=== PATIENT | female | born 1940 | race American Indian/Alaskan Native ===

== ENCOUNTER 2016-12-08 10:21 | Emergency (ER) | payer MEDICARE ==
[2016-12-08 10:22] VITALS: BMI 25.3
[2016-12-08] MEDS ORDERED: Sodium Chloride 0.9% 500 ML IV STA (11:00)
--- NOTE | 2016-12-08 11:03 | ED PDOC ---
Arrival/HPI - General Chief Complaint: Abdominal Pain Time Seen by Provider: 12/08/16 10:52 Historian: Patient, Family - History of Present Illness Narrative History of Present Illness (Text): 12/08/16 11:00 Farnaz Pink is a 76 year old female, with a past medical history of hypertension, asthma, CVA and colon CA, presents to the emergency department complaining of 2 day duration of intermittent abdominal pain associated with nausea and 3 episodes of vomiting. States she also had subjective fever. She is having normal bowel movements and had one today. Took Motrin yesterday for a mild headache, which has resolved. Denies dizziness, chest pain, shortness of breath, diarrhea, urinary symptoms, or any other complaints at this time. She also stats that she sees Dr. Bhatti who used to prescribe her Zantac and Omeprazole for he reflux. but they tapered her off of them. This feels like he reflux. Time/Duration: Other (yesterday ) Symptom Onset: Gradual Symptom Course: Intermittent Severity Level: Mild Activities at Onset: Light Context: Home Past Medical History - Provider Review Nursing Documentation Reviewed: Yes - Infectious Disease Hx of Infectious Diseases: None - Cardiac Hx Hypertension: Yes Hx Pacemaker: No - Pulmonary Hx Asthma: Yes - Neurological HX Cerebrovascular Accident: Yes (2008) Other/Comment: left sided weakness from stroke - Hematological/Oncological Hx Blood Transfusions: No Hx Blood Transfusion Reaction: No - Musculoskeletal/Rheumatological Hx Musculoskeletal Disorders: Yes - Gastrointestinal Other/Comment: h/o colon cancer had chemo and radiation 2006 - Psychiatric Hx Emotional Abuse: No Hx Physical Abuse: No Hx Substance Use: No - Surgical History Hx Hysterectomy: Yes - Anesthesia Hx Anesthesia: Yes Hx Anesthesia Reactions: No Hx Malignant Hyperthermia: No - Suicidal Assessment Feels Threatened In Home Enviroment: No Family/Social History - Physician Review Nursing Documentation Reviewed: Yes Family/Social History: No Known Family HX Smoking Status: Never Smoked Hx Alcohol Use: No Hx Substance Use: No Hx Substance Use Treatment: No Allergies/Home Meds Allergies/Adverse Reactions: Allergies No Known Allergies Allergy (Verified 01/31/15 14:25) Home Medications: Home Meds Medication Instructions Recorded Confirmed Albuterol Sulfate [Proair Hfa] 0.09 mg IH PRN PRN 02/29/12 08/27/16 Atorvastatin [Lipitor] 40 mg PO HS 02/29/12 12/08/16 Ramipril 10 mg PO HS 02/29/12 12/08/16 Ibuprofen 400 mg PO PRN PRN 10/14/14 12/08/16 Aspirin [Ecotrin] 81 mg PO DAILY 08/21/16 12/08/16 Labetalol [Trandate] 100 mg PO BID 08/21/16 12/08/16 Montelukast [Singulair] 10 mg PO DAILY 08/21/16 12/08/16 amLODIPine [Norvasc] 10 mg PO DAILY 08/21/16 12/08/16 Review of Systems - Physician Review All systems were reviewed & negative as marked: Yes - Review of Systems Constitutional: Fevers Respiratory: Cough. absent: SOB, Sputum Cardiovascular: Normal. absent: Chest Pain, Palpitations Gastrointestinal: Abdominal Pain, Nausea, Vomiting. absent: Diarrhea Genitourinary Female: Normal Neurological: Normal Psychiatric: Normal Physical Exam Vital Signs Reviewed: Yes Vital Signs Temp Pulse Resp BP Pulse Ox 12/08/16 14:09 98.3 F 78 16 152/90 H 100 12/08/16 10:34 98.9 F 77 19 177/84 H 98 Temperature: Afebrile Blood Pressure: Hypertensive Pulse: Regular Respiratory Rate: Normal Appearance: Positive for: Well-Appearing, Non-Toxic, Comfortable Pain Distress: None Mental Status: Positive for: Alert and Oriented X 3 - Systems Exam Head: Present: Atraumatic, Normocephalic Pupils: Present: PERRL Conjunctiva: Present: Normal Mouth: Present: Moist Mucous Membranes Respiratory/Chest: Present: Clear to Auscultation, Good Air Exchange. No: Respiratory Distress, Accessory Muscle Use Cardiovascular: Present: Regular Rate and Rhythm, Normal S1, S2. No: Murmurs Abdomen: Present: Tenderness, Normal Bowel Sounds. No: Distention, Peritoneal Signs, Rebound, Guarding Upper Extremity: Present: Normal Inspection. No: Cyanosis, Edema Lower Extremity: Present: Normal Inspection. No: Edema Neurological: Present: GCS=15, CN II-XII Intact, Speech Normal Skin: Present: Warm, Dry, Normal Color. No: Rashes Psychiatric: Present: Alert, Oriented x 3, Normal Insight, Normal Concentration Medical Decision Making ED Course and Treatment: 12/08/16 11:05 Impression: A 76 year old female who presents to the emergency department complaining of abdominal pain associated with nausea and vomiting since yesterday. Differential Diagnosis include but are not limited to: Abdominal pain: r/o gastritis vs. pancreatitis. less likely ACS. Plan: -- EKG -- Labs, cardiac enzymes -- Chest X-ray -- Pepcid -- Zofran -- IV fluids -- Urinalysis -- Reassess and disposition Progress Notes: 12/08/16 12:01 EKG interpreted by me: NSR @ 70 bpm. Normal Simpson. Normal interval. Chest X-ray interpreted by me: No acute findings. 12/08/16 14:40 On reevaluation, patient still does not have any pain. Her symptoms resolved prior to arrival. She has a low GLORIA score. She has follow up already set up with Dr. Bhatti and will take Zantac as prescribed. Her family is with her at bedside and we agree on the plan for follow up with PMD and Dr. Bhatti. Her eam is normal on reevaluation. No tenderness or distention. Tolerating PO fluids. - Lab Interpretations Lab Results: 12/08/16 11:46 12/08/16 11:46 Lab Results 12/08/16 11:46: Sodium 141, Potassium 3.9, Chloride 105, Carbon Dioxide 27, Anion Gap 13, BUN 12, Creatinine 0.9, Est GFR ( Amer) > 60, Est GFR (Non- Af Amer) > 60, Random Glucose 101, Calcium 9.9, Total Bilirubin 0.8, AST 27, ALT 25, Alkaline Phosphatase 66, Lactate Dehydrogenase 478, Total Creatine Kinase 121, Troponin I < 0.01, Total Protein 8.2, Albumin 4.3, Globulin 3.9, Albumin/Globulin Ratio 1.1, Amylase 111, Lipase 85 12/08/16 11:46: WBC 6.1, RBC 4.29, Hgb 13.2, Hct 37.5, MCV 87.4, MCH 30.8, MCHC 35.2, RDW 12.3, Plt Count 308, MPV 9.2, Gran % 56.4, Lymph % (Auto) 29.3, [place] % (Auto) 8.9 H, Eos % (Auto) 5.1 H, Baso % (Auto) 0.3, Gran # 3.44, Lymph # 1.8 , [place] # 0.5, Eos # 0.3, Baso # 0.02 I have reviewed the lab results: Yes - RAD Interpretation Radiology Orders: 12/08/16 11:00 CHEST PORTABLE [RAD] Stat Shoe Cutter: ED Physician - EKG Interpretation Interpreted by ED Physician: Yes Type: 12 lead EKG - Medication Orders Current Medication Orders: Discontinued Medications Famotidine (Pepcid) 20 mg IVP STAT STA Stop: 12/08/16 11:00 Last Admin: 12/08/16 11:46 Dose: 20 mg Sodium Chloride (Sodium Chloride 0.9%) 500 mls @ 999 mls/hr IV .Q31M STA Stop: 12/08/16 11:30 Last Admin: 12/08/16 11:46 Dose: 999 mls/hr Ondansetron HCl (Zofran Inj) 4 mg IVP STAT STA Stop: 12/08/16 11:00 Last Admin: 12/08/16 11:46 Dose: 4 mg - Scribe Statement The provider has reviewed the documentation as recorded by the Kelli Flores Provider Attestation: All medical record entries made by the Kelli were at my direction and personally dictated by me. I have reviewed the chart and agree that the record accurately reflects my personal performance of the history, physical exam, medical decision making, and the department course for this patient. I have also personally directed, reviewed, and agree with the discharge instructions and disposition. Disposition/Present on Arrival - Present on Arrival Any Indicators Present on Arrival: No History of DVT/PE: No History of Uncontrolled Diabetes: No Urinary Catheter: No History of Decub. Ulcer: No History Surgical Site Infection Following: None - Disposition Have Diagnosis and Disposition been Completed?: Yes Diagnosis: Abdominal pain Disposition: HOME/ ROUTINE Disposition Time: 14:10 Patient Plan: Discharge Patient Problems: Current Active Problems Problem Status Onset Abdominal pain Acute Condition: IMPROVED Discharge Instructions (ExitCare): Gastroesophageal Reflux Disease (ED), Abdominal Pain (ED) Additional Instructions: Ms Pink, thank you for letting us take care of you today. Your provider was Dr. Blanc. You were treated for Abdominal Pain. The emergency medical care you received today was directed at your acute symptoms. If you were prescribed any medication, please fill it and take as directed. It may take several days for your symptoms to resolve. Return to the Emergency Department if your symptoms worsen, do not improve, or if you have any other problems. Please contact your doctor or call one of the physicians/clinics you have been referred to that are listed on the Patient Visit Information form that is included in your discharge packet. Bring any paperwork you were given at discharge with you along with any medications you are taking to your follow up visit. Our treatment cannot replace ongoing medical care by a primary care provider (PCP) outside of the emergency department. Thank you for allowing the [facility] team to be part of your care today. If you had an X-Ray or CT scan: A Radiologist will review the ED reading if any change in treatment is needed we will contact you. If you had a blood, urine, or wound culture: It will take several days for the results, if any change in treatment is needed we will contact you. If you had an STI test: It will take 48 hours for the results. Please call after 1 week if you have not heard back. Prescriptions: Ondansetron ODT [Zofran ODT] 4 mg PO Q6 #14 odt Ranitidine HCl [Zantac] 150 mg PO BID PRN #30 tablet PRN Reason: Pain, Mild (1-3) Referrals: Angus Gongora MD [Family Provider] - Follow up with primary Dillon Bhatti MD [Medical Doctor] - Follow up with primary Forms: Air Visits Discharge ([place])
[2016-12-08 11:46] LABS: ADD MANUAL DIFF? NO
[2016-12-08 11:50] LABS: BASO # 0.02 K/mm3 (0.0-2.0); BASO % 0.3 % (0.0-3.0); EOS # 0.3 (0.0-0.7); EOS % 5.1 % (1.5-5.0); GRAN # 3.44 (1.4-6.5); GRAN % 56.4 % (50.0-68.0); HEMATOCRIT 37.5 % (36.0-48.0); LYMPH # 1.8 (1.2-3.4); LYMPH % 29.3 % (22.0-35.0); MEAN CELL VOLUME 87.4 fL (80.0-105.0); MEAN CORPUSCULAR HEMOGLOBIN 30.8 pg (25.0-35.0); MEAN CORPUSCULAR HGB CONC 35.2 g/dl (31.0-37.0); MEAN PLATELET VOLUME 9.2 fl (7.0-11.0); MONO # 0.5 (0.1-0.6); MONO % 8.9 % (1.0-6.0); PLATELET COUNT 308 10^3/uL (120.0-450.0); RED CELL DISTRIBUTION WIDTH 12.3 % (11.5-14.5); WHITE BLOOD COUNT 6.1 10^3/ul (4.5-11.0)
[2016-12-08 12:03] LABS: ALB/GLOB RATIO 1.1 (1.1-1.8); ALKALINE PHOSPHATASE 66 U/L (38-133); ALT/SGPT 25 U/L (7-56); AMYLASE 111 U/L (35-125); AST/SGOT 27 U/L (15-39); BILIRUBIN,TOTAL 0.8 mg/dL (0.2-1.3); BLOOD UREA NITROGEN 12 mg/dL (7-21); CALCIUM 9.9 mg/dL (8.4-10.5); CARBON DIOXIDE 27 mmol/L (21-33); CHLORIDE 105 mmol/L (98-107); GFR AFRICAN-AMERICAN > 60; GLUCOSE,RANDOM 101 mg/dL (70-110); LIPASE 85 U/L (23-300); POTASSIUM 3.9 mmol/L (3.6-5.0); SODIUM 141 mmol/L (132-148); TOTAL PROTEIN 8.2 g/dL (5.8-8.3)
[2016-12-08 12:32] LABS: TROPONIN I < 0.01 ng/mL
[2016-12-08 14:10] VITALS: BP 152/90; PULSE 78; RESP 16; TEMP 98.3; O2SAT 100
--- NOTE | 2016-12-08 16:03 | RAD ---
HISTORY: abd pain COMPARISON: GoNo prior. FINDINGS: LUNGS: No active pulmonary disease. Note made of a any elliptical shaped calcific like density overlying the left supraclavicular region which may represent small calcified lymph node PLEURA: No significant pleural effusion identified, no pneumothorax apparent. CARDIOVASCULAR: Heart is upper limits of normal in size. OSSEOUS STRUCTURES: No significant abnormalities. VISUALIZED UPPER ABDOMEN: Normal. OTHER FINDINGS: None. IMPRESSION: No acute cardiopulmonary disease.
--- NOTE | 2016-12-09 09:18 | CARD ---
APPROVED REPORT EKG Measurement Heart [id number] <Conclusion> Normal sinus rhythm Minimal voltage criteria for LVH, may be normal variant Borderline ECG
== END 2016-12-08 14:10 | disposition home or self-care (01) ==
LOC: ED 10:21
DX: R10.9 Unspecified abdominal pain (principal); Z86.73 Personal history of transient ischemic attack (TIA), and cerebral infarction without residual deficits; I10 Essential (primary) hypertension
CPT/HCPCS: 71010; 80053; 82150; 82550; 83615; 83690; 84484; 85025; 93005; 96374; 96375; 99283; J2405; J7040

== ENCOUNTER 2017-04-24 00:23 | Inpatient (IN) | payer MEDICARE, OTHER ==
[2017-04-24 00:24] VITALS: BMI 25.3
--- NOTE | 2017-04-24 00:47 | ED PDOC ---
Arrival/HPI - General Chief Complaint: Abdominal Pain Time Seen by Provider: 04/24/17 00:42 Historian: Patient - History of Present Illness Narrative History of Present Illness (Text): 04/24/17 00:47 Farnaz Pink is a 76 year old female, with a past medical history of hypertension, asthma, CVA, and colon CA, who presents to the complaining of intermittent upper abdominal pain since waking up yesterday morning. Patient denies any fever, chills, chest pain, nausea, vomiting, diarrhea, constipation, urinary symptoms, headache, dizziness, or any other complaints. Patient states her bowel movements have been normal. PMD: Dr. Heather Gongora GI: Dr. Bhatti Time/Duration: Other (yesterday morning) Symptom Onset: Gradual Symptom Course: Intermittent Activities at Onset: Light Context: Home Past Medical History - Provider Review Nursing Documentation Reviewed: Yes - Infectious Disease Hx of Infectious Diseases: None - Cardiac Hx Hypertension: Yes Hx Pacemaker: No - Pulmonary Hx Asthma: Yes - Neurological HX Cerebrovascular Accident: Yes (2008) Other/Comment: left sided weakness from stroke - Hematological/Oncological Hx Blood Transfusions: No Hx Blood Transfusion Reaction: No - Musculoskeletal/Rheumatological Hx Musculoskeletal Disorders: Yes - Gastrointestinal Other/Comment: h/o colon cancer had chemo and radiation 2005 - Psychiatric Hx Emotional Abuse: No Hx Physical Abuse: No Hx Substance Use: No - Surgical History Hx Hysterectomy: Yes - Anesthesia Hx Anesthesia: Yes Hx Anesthesia Reactions: No Hx Malignant Hyperthermia: No - Suicidal Assessment Feels Threatened In Home Enviroment: No Family/Social History - Physician Review Nursing Documentation Reviewed: Yes Family/Social History: Unknown Family HX Smoking Status: Never Smoked Hx Alcohol Use: No Hx Substance Use: No Hx Substance Use Treatment: No Allergies/Home Meds Allergies/Adverse Reactions: Allergies No Known Allergies Allergy (Verified 01/31/15 14:25) Home Medications: Home Meds Medication Instructions Recorded Confirmed Albuterol Sulfate [Proair Hfa] 0.09 mg IH PRN PRN 02/29/12 04/24/17 Atorvastatin [Lipitor] 40 mg PO HS 02/29/12 04/24/17 Ramipril 10 mg PO HS 02/29/12 04/24/17 Ibuprofen 400 mg PO PRN PRN 10/14/14 04/24/17 Aspirin [Ecotrin] 81 mg PO DAILY 08/21/16 04/24/17 Labetalol [Trandate] 100 mg PO BID 08/21/16 04/24/17 Montelukast [Singulair] 10 mg PO DAILY 08/21/16 04/24/17 amLODIPine [Norvasc] 10 mg PO DAILY 08/21/16 04/24/17 Review of Systems - Physician Review All systems were reviewed & negative as marked: Yes - Review of Systems Constitutional: Normal. absent: Fevers Eyes: Normal ENT: Normal Respiratory: Normal. absent: SOB, Cough Cardiovascular: Normal. absent: Chest Pain Gastrointestinal: Abdominal Pain. absent: Constipation, Diarrhea, Nausea, Vomiting, Hematochezia Genitourinary Female: Normal. absent: Dysuria, Frequency, Hematuria, Urine Output Changes Musculoskeletal: Normal. absent: Back Pain, Neck Pain Skin: Normal. absent: Rash Neurological: Normal. absent: Headache, Dizziness Endocrine: Normal Hemo/Lymphatic: Normal Psychiatric: Normal Physical Exam Vital Signs Reviewed: Yes Vital Signs Temp Pulse Resp BP Pulse Ox 04/24/17 04:42 81 16 155/82 H 95 04/24/17 00:34 98.5 F 78 18 164/72 H 98 Temperature: Afebrile Blood Pressure: Hypertensive Pulse: Regular Respiratory Rate: Normal Appearance: Positive for: Well-Appearing, Non-Toxic, Comfortable Pain Distress: None Mental Status: Positive for: Alert and Oriented X 3 - Systems Exam Head: Present: Atraumatic, Normocephalic Pupils: Present: PERRL Extroacular Muscles: Present: EOMI Conjunctiva: Present: Normal Mouth: Present: Moist Mucous Membranes Neck: Present: Normal Range of Motion Respiratory/Chest: Present: Clear to Auscultation, Good Air Exchange. No: Respiratory Distress, Accessory Muscle Use Cardiovascular: Present: Regular Rate and Rhythm, Normal S1, S2. No: Murmurs Abdomen: Present: Normal Bowel Sounds. No: Tenderness, Distention, Peritoneal Signs Upper Extremity: Present: Normal Inspection. No: Cyanosis, Edema Lower Extremity: Present: Normal Inspection. No: Edema Neurological: Present: GCS=15, CN II-XII Intact, Speech Normal Skin: Present: Warm, Dry, Normal Color. No: Rashes Psychiatric: Present: Alert, Oriented x 3, Normal Insight, Normal Concentration Medical Decision Making ED Course and Treatment: 04/24/17 00:47 Impression: 76 year old female complaining of intermittent upper abdominal pain since yesterday morning. Plan: -- CT Abdomen and Pelvis -- EKG -- Labs, cardiac enzymes, amylase, lipase, VBG, blood cultures -- Urinalysis, urine cultures -- IV fluids -- Zofran -- Reassess and disposition Prior Visits: Notes and results from previous visits were reviewed. On 12/08/2016, pt was seen in the Emergency department for abdominal pain, nausea, and vomiting. Pt was d/c home. Progress Notes: Reviewed EKG, NSR at [address]pm[address] LAD. Non-specific ST/T wave changes. 04/24/17 03:14 Reviewed radiology, CT Abdomen and Pelvis shows: 1. Enteritis, nonspecific. Consider infectious, inflammatory, ischemic etiologies. 2. Mild small bowel dilatation concerning for early small bowel obstruction. 3. Incidental/non-acute findings are described above. 04/24/17 03:[address] De Santiago, who is aware and agrees with plan. Accepts pt in to his service. Pt will be admitted to [facility] for intestinal obstruction. Pt agreeable with plan. - Lab Interpretations Microbiology Results: Microbiology Results 04/24/17 01:38 Blood-Venous Blood Culture - Preliminary NO GROWTH AFTER 4 DAYS 04/24/17 01:38 Blood-Venous Blood Culture - Preliminary NO GROWTH AFTER 4 DAYS 04/24/17 02:55 Urine,Clean Catch Urine Culture - Final No Growth (<1,000 CFU/ML) Lab Results: 04/24/17 01:38 04/24/17 01:38 Lab Results 04/24/17 02:55: Urine Color Yellow, Urine Appearance Clear, Urine pH 8.0, Ur Specific Hugo 1.010, Urine Protein Negative, Urine Glucose (UA) Negative, Urine Ketones Trace H, Urine Blood Negative, Urine Nitrate Negative, Urine Bilirubin Negative, Urine Urobilinogen 0.2, Ur Leukocyte Esterase Negative 04/24/17 01:38: pO2 69 H, VBG pH 7.44 H, VBG pCO2 47.0, VBG HCO3 31.9 H, VBG Total CO2 33.3 H, VBG O2 Sat (Calc) 94.5 H, VBG Base Excess 6.6 H, VBG Potassium 4.5, Sodium 140.0, Chloride 105.0, Glucose 111 H, Lactate 1.2, FiO2 21.0, Venous Blood Potassium 4.5 04/24/17 01:38: Sodium 144, Chloride 102, Potassium 3.4 L, Carbon Dioxide 31, Anion Gap 14, BUN 12, Creatinine 0.9, Est GFR ( Amer) > 60, Est GFR (Non- Af Amer) > 60, Random Glucose 108, Calcium 9.9, Total Bilirubin 0.5, AST 36, ALT 29, Alkaline Phosphatase 77, Lactate Dehydrogenase 557, Total Creatine Kinase 162, Troponin I < 0.01, Total Protein 7.7, Albumin 4.4, Globulin 3.3, Albumin/Globulin Ratio 1.3, Amylase 99, Lipase 95 04/24/17 01:38: PT 10.8, INR 1.00, APTT 24.7 04/24/17 01:38: WBC 8.1 D, RBC 4.30, Hgb 13.1, Hct 37.4, MCV 87.0, MCH 30.5, MCHC 35.0, RDW 12.5, Plt Count 313, MPV 9.5, Gran % 72.1 H, Lymph % (Auto) 19.9 L, [place] % (Auto) 6.0, Eos % (Auto) 1.6, Baso % (Auto) 0.4, Gran # 5.84, Lymph # 1.6, [place] # 0.5, Eos # 0.1, Baso # 0.03 I have reviewed the lab results: Yes - RAD Interpretation Narrative RAD Interpretations (Text): CT Abdomen and Pelvis shows: Limitations: Lack of intravenous contrast. Lower thorax: Moderate-sized hiatal hernia. ABDOMEN: Liver: Unremarkable. Gallbladder and bile ducts: No calcified stones. No ductal dilation. Pancreas: Unremarkable. No ductal dilation. Spleen: No splenomegaly. Adrenals: No mass. Kidneys and ureters: No renal calculi. No hydronephrosis. Stomach and bowel: Postsurgical changes of distal colon. Few mildly thickened loops of small bowel within lower abdomen. Mildly dilated loops of mid small bowel proximal to thickening. Mild stranding within associated small bowel mesentery. Appendix: No findings to suggest acute appendicitis. PELVIS: Bladder: Unremarkable. No stones. Reproductive: Hysterectomy. Subperitoneal space: Mild stranding/soft tissue density in presacral space, nonspecific. ABDOMEN and PELVIS: Intraperitoneal space: Small free fluid within abdomen. No free air. Bones/joints: Degenerative changes of spine. No acute fracture. Soft tissues: Laparotomy scar. Vasculature: Moderate atherosclerotic disease. No aneurysm. Lymph nodes: No pathologically enlarged lymph nodes. IMPRESSION: 1. Enteritis, nonspecific. Consider infectious, inflammatory, ischemic etiologies. 2. Mild small bowel dilatation concerning for early small bowel obstruction. 3. Incidental/non-acute findings are described above. Radiology Orders: 04/24/17 01:00 ABD & PELVIS W/O PO OR IV CONT [CT] Stat Warrant Server: Radiologist - EKG Interpretation Interpreted by ED Physician: Yes Type: 12 lead EKG - Medication Orders Current Medication Orders: Amlodipine Besylate (Norvasc) 10 mg PO DAILY [facility] Last Admin: 04/27/17 10:18 Dose: 10 mg Clonidine HCl (Catapres) 0.1 mg PO BID [facility] Last Admin: 04/27/17 18:07 Dose: 0.1 mg Ceftriaxone Sodium (Rocephin 1 Gram Ivpb) 1 gm in 100 mls @ 100 mls/hr IVPB DAILY [facility] PRN Reason: Protocol Last Admin: 04/27/17 10:19 Dose: 100 mls/hr Metronidazole (Flagyl) 500 mg in 100 mls @ 100 mls/hr IVPB Q8 [facility] PRN Reason: Protocol Last Admin: 04/27/17 22:30 Dose: 100 mls/hr Labetalol HCl (Trandate) 100 mg PO BID [facility] Last Admin: 04/27/17 18:05 Dose: 100 mg Morphine Sulfate (Morphine) 2 mg IVP Q4H PRN PRN Reason: Pain, moderate (4-7) Ondansetron HCl (Zofran Inj) 4 mg IVP Q6H PRN PRN Reason: Nausea/Vomiting Pantoprazole Sodium (Protonix Ec Tab) 40 mg PO 0600 [facility] Ramipril (Altace) 20 mg PO HS [facility] Last Admin: 04/27/17 22:30 Dose: 20 mg Discontinued Medications Barium Sulfate (Readi-Cat 2) Confirm Administered Dose 900 ml PO .STK-MED ONE Stop: 04/25/17 10:31 Clonidine HCl (Catapres) 0.1 mg PO STAT STA Stop: 04/25/17 18:16 Last Admin: 04/25/17 18:41 Dose: 0.1 mg Sodium Chloride (Sodium Chloride 0.9%) 1,000 mls @ 100 mls/hr IV .Q10H STA Stop: 04/24/17 10:59 Last Admin: 04/24/17 02:43 Dose: 100 mls/hr Sodium Chloride (Sodium Chloride 0.9%) 1,000 mls @ 100 mls/hr IV .Q10H STA Stop: 04/24/17 13:50 Last Admin: 04/24/17 04:04 Dose: Potassium Chloride 40 meq/ (Sodium Chloride) 1,020 mls @ 100 mls/hr IV .[id number] [facility] Last Admin: 04/25/17 06:55 Dose: 100 mls/hr Potassium Chloride (Potassium Chloride 20 Meq/100 Ml) 20 meq in 100 mls @ 50 mls/hr IVPB ONCE ONE Stop: 04/24/17 11:54 Last Admin: 04/24/17 10:25 Dose: Ceftriaxone Sodium (Rocephin 1 Gram Ivpb) 1 gm in 100 mls @ 200 mls/hr IVPB STAT STA PRN Reason: Protocol Stop: 04/25/17 17:50 Last Admin: 04/25/17 17:42 Dose: 200 mls/hr Potassium Chloride (Potassium Chloride 10 Meq/100 Ml) 10 meq in 100 mls @ 100 mls/hr IVPB Q2H [facility] Stop: 04/27/17 11:44 Last Admin: 04/27/17 10:18 Dose: 100 mls/hr Iohexol (Omnipaque 350 100 Ml) Confirm Administered Dose 350 mg .ROUTE .STK-MED ONE Stop: 04/25/17 13:16 Morphine Sulfate (Morphine) 2 mg IVP STAT STA Stop: 04/24/17 02:56 Last Admin: 04/24/17 03:12 Dose: 2 mg Ondansetron HCl (Zofran Inj) 4 mg IVP STAT STA Stop: 04/24/17 01:01 Last Admin: 04/24/17 02:43 Dose: 4 mg Pantoprazole Sodium (Protonix Inj) 40 mg IVP DAILY [facility] Last Admin: 04/27/17 10:19 Dose: 40 mg Potassium Chloride (K-Dur 20 Meq Er Tab) 40 meq PO ONCE ONE Stop: 04/25/17 08:16 Last Admin: 04/25/17 08:21 Dose: 40 meq Ramipril (Altace) 10 mg PO [facility] Last Admin: 04/26/17 22:18 Dose: Not Given Non-Admin Reason: BP Parameters Not Met Ramipril (Altace) 10 mg PO STAT STA Stop: 04/26/17 17:15 Last Admin: 04/26/17 17:58 Dose: 10 mg - Scribe Statement The provider has reviewed the documentation as recorded by the Kelli Woods Provider Scribe Attestation: All medical record entries made by the Kaelaibcaleb were at my direction and personally dictated by me. I have reviewed the chart and agree that the record accurately reflects my personal performance of the history, physical exam, medical decision making, and the department course for this patient. I have also personally directed, reviewed, and agree with the discharge instructions and disposition. Disposition/Present on Arrival - Present on Arrival Any Indicators Present on Arrival: No History of DVT/PE: No History of Uncontrolled Diabetes: No Urinary Catheter: No History of Decub. Ulcer: No History Surgical Site Infection Following: None - Disposition Have Diagnosis and Disposition been Completed?: Yes Diagnosis: Bowel obstruction Disposition: HOME/ ROUTINE Disposition Time: 03:40 Patient Problems: Current Active Problems Problem Status Onset Bowel obstruction Acute Condition: FAIR
[2017-04-24] MEDS ORDERED: Sodium Chloride 0.9% 1,000 ML IV STA ×2 (01:00→03:51)
[2017-04-24 01:52] LABS: BASO # 0.03 K/mm3 (0.0-2.0); BASO % 0.4 % (0.0-3.0); EOS # 0.1 (0.0-0.7); EOS % 1.6 % (1.5-5.0); GRAN # 5.84 (1.4-6.5); GRAN % 72.1 % (50.0-68.0); HEMATOCRIT 37.4 % (36.0-48.0); LYMPH # 1.6 (1.2-3.4); LYMPH % 19.9 % (22.0-35.0); MEAN CORPUSCULAR HEMOGLOBIN 30.5 pg (25.0-35.0); MEAN PLATELET VOLUME 9.5 fl (7.0-11.0); MONO # 0.5 (0.1-0.6); RED CELL DISTRIBUTION WIDTH 12.5 % (11.5-14.5); WHITE BLOOD COUNT 8.1 10^3/ul (4.5-11.0)
[2017-04-24 02:05] LABS: PARTIAL THROMBOPLASTIN TIME 24.7 Seconds (23.7-30.8)
[2017-04-24 02:11] LABS: ALB/GLOB RATIO 1.3 (1.1-1.8); ALKALINE PHOSPHATASE 77 U/L (38-126); ALT/SGPT 29 U/L (7-56); AMYLASE 99 U/L (35-125); AST/SGOT 36 U/L (14-36); BILIRUBIN,TOTAL 0.5 mg/dL (0.2-1.3); BLOOD UREA NITROGEN 12 mg/dL (7-21); CALCIUM 9.9 mg/dL (8.4-10.5); CARBON DIOXIDE 31 mmol/L (21-33); CHLORIDE 102 mmol/L (98-107); GFR AFRICAN-AMERICAN > 60; GLUCOSE,RANDOM 108 mg/dL (70-110); LIPASE 95 U/L (23-300); POTASSIUM 3.4 mmol/L (3.6-5.0); SODIUM 144 mmol/L (132-148); TOTAL PROTEIN 7.7 g/dL (5.8-8.3)
[2017-04-24 02:12] LABS: VENOUS BLOOD GAS BASE EXCESS 6.6 mmol/L (0.0-2.0); VENOUS BLOOD PH 7.44 (7.32-7.43)
[2017-04-24 02:22] LABS: TROPONIN I < 0.01 ng/mL
[2017-04-24] MEDS ORDERED: Morphine 2 mg/ml ISec IVP STA (02:55)
--- NOTE | 2017-04-24 03:12 | CT ---
EXAM: CT Abdomen and Pelvis Without Intravenous Contrast CLINICAL HISTORY: 76 years old, female; Pain; Abdominal pain; Generalized; Prior surgery; Surgery date: 6+ months; Surgery type: Hysterectomy; Additional info: Abd pain TECHNIQUE: Axial computed tomography images of the abdomen and pelvis without intravenous contrast. All CT scans at this facility use one or more dose reduction techniques, viz.: automated exposure control; ma/kV adjustment per patient size (including targeted exams where dose is matched to indication; i.e. head); or iterative reconstruction technique. Coronal and sagittal reformatted images were created and reviewed. COMPARISON: No relevant prior studies available. FINDINGS: Limitations: Lack of intravenous contrast. Lower thorax: Moderate-sized hiatal hernia. ABDOMEN: Liver: Unremarkable. Gallbladder and bile ducts: No calcified stones. No ductal dilation. Pancreas: Unremarkable. No ductal dilation. Spleen: No splenomegaly. Adrenals: No mass. Kidneys and ureters: No renal calculi. No hydronephrosis. Stomach and bowel: Postsurgical changes of distal colon. Few mildly thickened loops of small bowel within lower abdomen. Mildly dilated loops of mid small bowel proximal to thickening. Mild stranding within associated small bowel mesentery. Appendix: No findings to suggest acute appendicitis. PELVIS: Bladder: Unremarkable. No stones. Reproductive: Hysterectomy. Subperitoneal space: Mild stranding/soft tissue density in presacral space, nonspecific. ABDOMEN and PELVIS: Intraperitoneal space: Small free fluid within abdomen. No free air. Bones/joints: Degenerative changes of spine. No acute fracture. Soft tissues: Laparotomy scar. Vasculature: Moderate atherosclerotic disease. No aneurysm. Lymph nodes: No pathologically enlarged lymph nodes. IMPRESSION: 1. Enteritis, nonspecific. Consider infectious, inflammatory, ischemic etiologies. 2. Mild small bowel dilatation concerning for early small bowel obstruction. 3. Incidental/non-acute findings are described above.
[2017-04-24 03:15] LABS: URINE APPEARANCE CLEAR (CLEAR); URINE BILIRUBIN NEGATIVE (NEGATIVE); URINE BLOOD NEGATIVE (NEGATIVE); URINE COLOR YELLOW (YELLOW); URINE GLUCOSE (UA) NEGATIVE (NEGATIVE); URINE KETONE TRACE mg/dL (NEGATIVE); URINE LEUKOCYTE ESTERASE NEGATIVE Leu/uL (NEGATIVE); URINE PROTEIN NEGATIVE mg/dL (<30 mg/dL); URINE UROBILINOGEN 0.2 E.U./dL (<1 E.U./dL)
[2017-04-24] MEDS ORDERED: Morphine 2 mg/ml ISec IVP PRN (03:52)
--- NOTE | 2017-04-24 09:32 | CP.PCM.CON ---
History of Present Illness - History of Present Illness History of Present Illness: General Surgery Consult note: Dr. Delcid 76F w/ PMHx of HTN, CVA, colorectal cancer s/p resection (2005), presented to the ED with complaints of mid abdominal pain. Patient reports pain began yesterday afternoon. She states pain waxes and wanes and rates the pain as a 5/ 10. She denies radiation. Patient reports having two bouts of non-bloody emesis. Last bowel movement was two days ago. As per patient the last time she passed flatus was a day ago. Currently reports improvement of pain and rates it a 2/10. At time of examination denied fever/chills, n/v/d/c. PMHx: as stated above PSurgHx: colorectal resection, hysterectomy Allergies: NKDA Soc Hx: Denies smoking, EtOH use Review of Systems - Review of Systems Review of Systems: 12 pt ROS, unremarkable, except as stated in HPI Past Patient History - Infectious Disease Hx of Infectious Diseases: None - Past Social History Smoking Status: Never Smoked - CARDIAC Hx Hypercholesterolemia: Yes Hx Hypertension: Yes - PULMONARY Hx Asthma: Yes - NEUROLOGICAL HX Cerebrovascular Accident: Yes (2008) - HEENT Hx Cataracts: Yes - HEMATOLOGICAL/ONCOLOGICAL Hx Cancer: Yes (Colon 2005) - MUSCULOSKELETAL/RHEUMATOLOGICAL Hx Falls: No - GASTROINTESTINAL Other/Comment: h/o colon cancer had chemo and radiation 2005 - PSYCHIATRIC Hx Substance Use: No - SURGICAL HISTORY Hx Surgeries: Yes (Colon Resection) - ANESTHESIA Hx Anesthesia: Yes Hx Anesthesia Reactions: No Hx Malignant Hyperthermia: No Meds Allergies/Adverse Reactions: Allergies Allergy/AdvReac Type Severity Reaction Status Date / Time No Known Allergies Allergy Verified 01/31/15 14:25 - Medications Medications: Current Medications Amlodipine Besylate (Norvasc) 10 mg PO DAILY [facility] Potassium Chloride 40 meq/ (Sodium Chloride) 1,020 mls @ 100 mls/hr IV .[id number] [facility] Labetalol HCl (Trandate) 100 mg PO BID [facility] Morphine Sulfate (Morphine) 2 mg IVP Q4H PRN PRN Reason: Pain, moderate (4-7) Ondansetron HCl (Zofran Inj) 4 mg IVP Q6H PRN PRN Reason: Nausea/Vomiting Ramipril (Altace) 10 mg PO HS [facility] Physical Exam - Constitutional Appears: No Acute Distress - Head Exam Head Exam: NORMOCEPHALIC - Eye Exam Eye Exam: Normal appearance - ENT Exam ENT Exam: Mucous Membranes Moist - Respiratory Exam Respiratory Exam: NORMAL BREATHING PATTERN - Cardiovascular Exam Cardiovascular Exam: +S1, +S2 - GI/Abdominal Exam GI & Abdominal Exam: Soft. absent: Tenderness - Extremities Exam Extremities exam: Negative for: pedal edema - Neurological Exam Neurological exam: Alert, Oriented x3 - Psychiatric Exam Psychiatric exam: Normal Mood - Skin Skin Exam: Normal Color, Warm Results - Vital Signs Recent Vital Signs: Last Vital Signs Temp 98.1 F 04/24/17 08:41 Pulse 83 04/24/17 08:41 Resp 20 04/24/17 08:41 BP 162/76 H 04/24/17 08:41 Pulse Ox 97 04/24/17 08:41 - Labs Result Diagrams: 04/25/17 07:45 04/25/17 07:45 Assessment & Plan - Assessment and Plan (Free Text) Assessment: 76F w/ abdominal pain, nausea/vomiting, likely 2/2 early pSBO -Conservative management -NPO -IVF -Serial abdominal exams -Monitor bowel function -Medical management as per primary team -Further recs per Dr. Frahana Adams PGY-2
--- NOTE | 2017-04-24 10:52 | CARD ---
APPROVED REPORT EKG Measurement Heart [id number] VT 150P62 [id number] <Conclusion> Normal sinus rhythm Left axis deviation Minimal voltage criteria for LVH, may be normal variant
--- NOTE | 2017-04-24 14:18 | CP.PCM.CON ---
<Yomaira Ortega - Last Filed: 04/24/17 14:17> History of Present Illness - History of Present Illness History of Present Illness: Seen and examined at the bedside earlier today, the chart was reviewed. Request for consult is for intestinal obstruction. HPI: This is a 76-year-old female with a past medical history of colon cancer with colon resection,and chemoradiation in 2005, hypertension, and CVAcame to the emergency room with complaints of intermittent abdominal pain since yesterday morning. Currently her family is at bedside, the patient does report some nausea, vomitingyesterday, no hematemesis. Her abdominal pain she states is currently the same as when she came in, denies any increase in intensity. On admission she had a CAT scan of abdomen and pelvis with no contrast which is reporting nonspecific enteritis, and concerns for early small bowel obstruction. She denies any bowel movements since admission, last BM was 2 days ago,but does report passing gas. Denies change in bowel habits. Denies nausea or vomiting. No reports of any overt GI bleed. The patient did have endoscopy on August 2016 for iron deficiency anemia found to have narrowing in the GE junction and esophagitis,her biopsies for esophagus were negative for Bo's, her most recent colonoscopy was in 2014 she did have a history of colon polyps, but no polyps were found at this time, found to have hemorrhoids and diverticulosis. Past medical history: Asthma, CVA with left-sided weakness, hypertension, colon cancer with chemoradiation, colon polyps, esophagitis Surgical history: Colon resection Allergies: no known drug allergies Family history: Noncontributory Medications: Reviewed as per MAR Social history: Denies EtOH, smoking or substance abuse ROS: Systems reviewed with positive findings see HPI Past Patient History - Infectious Disease Hx of Infectious Diseases: None - Past Social History Smoking Status: Never Smoked - CARDIAC Hx Hypercholesterolemia: Yes Hx Hypertension: Yes - PULMONARY Hx Asthma: Yes - NEUROLOGICAL HX Cerebrovascular Accident: Yes (2008) - HEENT Hx Cataracts: Yes - HEMATOLOGICAL/ONCOLOGICAL Hx Cancer: Yes (Colon 2005) - MUSCULOSKELETAL/RHEUMATOLOGICAL Hx Falls: No - GASTROINTESTINAL Other/Comment: h/o colon cancer had chemo and radiation 2005 - PSYCHIATRIC Hx Substance Use: No - SURGICAL HISTORY Hx Surgeries: Yes (Colon Resection) - ANESTHESIA Hx Anesthesia: Yes Hx Anesthesia Reactions: No Hx Malignant Hyperthermia: No Meds Allergies/Adverse Reactions: Allergies Allergy/AdvReac Type Severity Reaction Status Date / Time No Known Allergies Allergy Verified 01/31/15 14:25 - Medications Medications: Current Medications Amlodipine Besylate (Norvasc) 10 mg PO DAILY [facility] Last Admin: 04/24/17 09:31 Dose: 10 mg Potassium Chloride 40 meq/ (Sodium Chloride) 1,020 mls @ 100 mls/hr IV .[id number] [facility] Last Admin: 04/24/17 09:31 Dose: 100 mls/hr Labetalol HCl (Trandate) 100 mg PO BID [facility] Last Admin: 04/24/17 09:31 Dose: 100 mg Morphine Sulfate (Morphine) 2 mg IVP Q4H PRN PRN Reason: Pain, moderate (4-7) Ondansetron HCl (Zofran Inj) 4 mg IVP Q6H PRN PRN Reason: Nausea/Vomiting Pantoprazole Sodium (Protonix Inj) 40 mg IVP DAILY [facility] Last Admin: 04/24/17 12:18 Dose: 40 mg Ramipril (Altace) 10 mg PO HS [facility] Physical Exam - Constitutional Appears: No Acute Distress - Head Exam Head Exam: NORMOCEPHALIC - Eye Exam Eye Exam: Normal appearance. absent: Scleral icterus - ENT Exam ENT Exam: Mucous Membranes Moist - Neck Exam Neck exam: Positive for: Normal Inspection - Respiratory Exam Respiratory Exam: Clear to Auscultation Bilateral, NORMAL BREATHING PATTERN. absent: Respiratory Distress - Cardiovascular Exam Cardiovascular Exam: +S1, +S2 - GI/Abdominal Exam GI & Abdominal Exam: Distended, Normal Bowel Sounds, Soft, Tenderness (right quadrant). absent: Guarding, Rebound - Extremities Exam Extremities exam: Positive for: pedal pulses present. Negative for: calf tenderness, pedal edema - Neurological Exam Neurological exam: Alert, Oriented x3 - Skin Skin Exam: Dry, Warm Results - Vital Signs Recent Vital Signs: Last Vital Signs Temp 98.1 F 04/24/17 08:41 Pulse 83 04/24/17 08:41 Resp 20 04/24/17 08:41 BP 162/76 H 04/24/17 09:31 Pulse Ox 97 04/24/17 08:41 - Labs Result Diagrams: 04/24/17 01:38 04/24/17 01:38 Assessment & Plan - Assessment and Plan (Free Text) Assessment: Assessment: Partial small bowel obstruction History of colon cancer, h/o colon resection CVA, left-sided weakness Hypertension Asthma History of colon polyps Plan: Nothing by mouth continue IV fluids for hydration GI prophylaxis DVT prophylaxis Pain management Surgical follow-up If no improvement, consider repeat CT scan with contrast, will follow closely Thank you for this consult and for allowing us to participate in your patient's care, further recommendations based upon clinical course. Seen and discussed with Dr. Bhatti. <Dillon Bhatti V - Last Filed: 04/24/17 22:25> Meds - Medications Medications: Current Medications Amlodipine Besylate (Norvasc) 10 mg PO DAILY [facility] Last Admin: 04/24/17 09:31 Dose: 10 mg Potassium Chloride 40 meq/ (Sodium Chloride) 1,020 mls @ 100 mls/hr IV .[id number] [facility] Last Admin: 04/24/17 21:13 Dose: 100 mls/hr Labetalol HCl (Trandate) 100 mg PO BID [facility] Last Admin: 04/24/17 17:18 Dose: 100 mg Morphine Sulfate (Morphine) 2 mg IVP Q4H PRN PRN Reason: Pain, moderate (4-7) Ondansetron HCl (Zofran Inj) 4 mg IVP Q6H PRN PRN Reason: Nausea/Vomiting Pantoprazole Sodium (Protonix Inj) 40 mg IVP DAILY [facility] Last Admin: 04/24/17 12:18 Dose: 40 mg Ramipril (Altace) 10 mg PO HS [facility] Last Admin: 04/24/17 21:09 Dose: 10 mg Results - Vital Signs Recent Vital Signs: Last Vital Signs Temp 98.3 F 04/24/17 16:00 Pulse 67 04/24/17 17:18 Resp 16 04/24/17 16:00 BP 166/68 H 04/24/17 17:18 Pulse Ox 96 04/24/17 16:00 - Labs Result Diagrams: 04/24/17 01:38 04/24/17 01:38 Attending/Attestation - Attestation I have personally seen and examined this patient.: Yes I have fully participated in the care of the patient.: Yes I have reviewed all pertinent clinical information: Yes Notes (Text): This is an addendum to GI progress report dictated by Yomaira Ortega APN.The patient was seen and examined earlier. Medical records, lab studies, imagings were reviewed. Last 24 hours events reviewed. Agreed with the above treatment plan as outlined in Yomaira Ortega NP's notes the with the addition of the following patient still complains of abdominal pain has been causing small amount of flatus CT scan reviewed distended small bowel loops seen. Recent endoscopy reports reviewed Patient has been started on clear liquid diet Would consider repeating the CT with po and IV contrast thank you very much for allowing us to participate in the care of the patient 04/24/17 22:22
--- NOTE | 2017-04-25 07:08 | CON ---
DATE: 04/24/2017 This is hospital consult on the medical floor. For Dr. Aparicio. CHIEF COMPLAINT: Abdominal pain. HISTORY OF PRESENT ILLNESS: The patient is a 76-year-old black female, former patient of Dr. Aparicio who treated her for colon cancer, status post resection 2005, admitted by the emergency room for abdominal pain of approximately 2 days duration. The patient now resting comfortably with partial small bowel obstruction noted on testing. She reports the pain is improved, but it is still significant with narcotic analgesics necessary to relieve her pain. ALLERGIES: NO KNOWN ALLERGIES. MEDICATIONS: At this time include Altace, morphine, Norvasc, Protonix, labetalol, Zofran. PAST MEDICAL HISTORY: As above, colorectal resection for cancer in 2005, hypertension, history of CVA, status post hysterectomy, GERD. FAMILY HISTORY AND SOCIAL HISTORY: The patient denies smoking, denies alcohol use; otherwise, noncontributory. REVIEW OF SYSTEMS: A 12-point review of systems is now with negative finding except as noted in the history of present illness. OBJECTIVE/PHYSICAL EXAMINATION VITAL SIGNS: Temperature 98.3, pulse 67, respirations 16, blood pressure 166/68, pulse ox 96%. HEENT: Unremarkable. NECK: Supple. HEART: Regular rate. LUNGS: Clear. ABDOMEN: Soft with minimal tenderness to gentle palpation. LABORATORY DATA: The patient also had testing done to include a CT scan of the abdomen and pelvis done on 04/24/2017, earlier today, which showed enteritis, nonspecific, considering infectious, inflammatory or ischemic etiologies, mild small bowel dilatation concerning for early small bowel obstruction and incidental non-acute findings. The patient's other testing included a CBC showing white blood cell count 8.1, hemoglobin 13.1, hematocrit 37.4, platelet count 313,000. Chem metabolic panel showing potassium of 3.4. INR 1.0. Urinalysis essentially negative. ASSESSMENT: The assessment for this patient is that of abdominal pain, small bowel obstruction, history of colorectal cancer status post resection, hypertension, electrolyte imbalance. PLAN: The plan for this patient is to continue present medical regimen with prognosis for this patient guarded. With further testing as indicated. We will also check CA and CA 19-9. Sudarshan Peters MD [facility] # [id number]
[2017-04-25 07:50] LABS: HEMATOCRIT 35.8 % (36.0-48.0); MEAN CELL VOLUME 89.3 fl (80.0-105.0); MEAN CORPUSCULAR HEMOGLOBIN 29.2 pg (25.0-35.0); MEAN CORPUSCULAR HGB CONC 32.7 g/dl (31.0-37.0); MEAN PLATELET VOLUME 9.1 fl (7.0-11.0); RED CELL DISTRIBUTION WIDTH 12.6 % (11.5-14.5); WHITE BLOOD COUNT 5.8 10^3/ul (4.5-11.0)
[2017-04-25] MEDS ORDERED: Potassium Chloride 20 mEq ER Tab PO ONE (08:15)
[2017-04-25 08:19] LABS: ALB/GLOB RATIO 1.2 (1.1-1.8); ALKALINE PHOSPHATASE 56 U/L (38-126); ALT/SGPT 26 U/L (7-56); AST/SGOT 27 U/L (14-36); BILIRUBIN,TOTAL 0.5 mg/dL (0.2-1.3); BLOOD UREA NITROGEN 6 mg/dL (7-21); CALCIUM 9.1 mg/dL (8.4-10.5); CARBON DIOXIDE 30 mmol/L (21-33); CHLORIDE 110 mmol/L (98-107); GFR AFRICAN-AMERICAN > 60; GLUCOSE,RANDOM 88 mg/dL (70-110); MAGNESIUM 1.8 mg/dL (1.7-2.2); POTASSIUM 4.7 mmol/L (3.6-5.0); SODIUM 146 mmol/L (132-148); TOTAL PROTEIN 6.5 g/dL (5.8-8.3)
--- NOTE | 2017-04-25 09:19 | CP.PCM.PN ---
Subjective - Date & Time of Evaluation Date of Evaluation: 04/25/17 Time of Evaluation: 07:00 - Subjective Subjective: Patient seen and examined this morning. No acute events over night. Patient reports having BM and passing flatus. Tolerating diet. Objective - Vital Signs/Intake and Output Vital Signs (last 24 hours): Temp Pulse Resp BP Pulse Ox 98 F 74 20 150/70 100 04/25/17 08:21 04/25/17 08:21 04/25/17 08:21 04/25/17 09:00 04/25/17 08:21 Intake and Output: 04/25/17 04/25/17 06:59 18:59 Intake Total 1979 Balance 1979 - Medications Medications: Current Medications Amlodipine Besylate (Norvasc) 10 mg PO DAILY [facility] Last Admin: 04/25/17 09:00 Dose: 10 mg Labetalol HCl (Trandate) 100 mg PO BID [facility] Last Admin: 04/25/17 09:00 Dose: 100 mg Morphine Sulfate (Morphine) 2 mg IVP Q4H PRN PRN Reason: Pain, moderate (4-7) Ondansetron HCl (Zofran Inj) 4 mg IVP Q6H PRN PRN Reason: Nausea/Vomiting Pantoprazole Sodium (Protonix Inj) 40 mg IVP DAILY [facility] Last Admin: 04/25/17 08:59 Dose: 40 mg Ramipril (Altace) 10 mg PO HS [facility] Last Admin: 04/24/17 21:09 Dose: 10 mg - Labs Labs: 04/25/17 07:45 04/25/17 07:45 PT 10.8 Seconds (9.9-11.8) 04/24/17 01:38 INR 1.00 (0.93-1.08) 04/24/17 01:38 APTT 24.7 Seconds (23.7-30.8) 04/24/17 01:38 - Constitutional Appears: Non-toxic - Head Exam Head Exam: NORMOCEPHALIC - Eye Exam Eye Exam: Normal appearance - ENT Exam ENT Exam: Mucous Membranes Moist - Respiratory Exam Respiratory Exam: NORMAL BREATHING PATTERN - Cardiovascular Exam Cardiovascular Exam: +S1, +S2 - GI/Abdominal Exam GI & Abdominal Exam: Soft. absent: Distended, Firm, Guarding, Rigid - Neurological Exam Neurological Exam: Alert, Awake, Oriented x3 - Skin Skin Exam: Dry, Warm Assessment and Plan - Assessment and Plan (Free Text) Assessment: 76F w/ pSBO, resolved -Regular diet -Encourage ambulation -No acute surgical intervention necessary at this present time -Further recs per Dr. Hang Adams PGY-2
--- NOTE | 2017-04-25 10:13 | HP ---
CHIEF COMPLAINT AND HISTORY OF PRESENT ILLNESS: This is a 76-year-old female who has come into the hospital because of acute abdominal pain that started yesterday. She said that the pain started suddenly as 5/10, so she came in for further evaluation. She was given pain medications, which she said that helped the pain; she did not think it was making the pain better or worse. She said she is not able to have bowel movements for the last 2 days. The patient does have a history of colon cancer with colon resection and radiation that was done in 2005. She said she was diagnosed by Dr. Edwards, but following with Dr. Aparicio. She has a history of hypertension. She states that she has no abdominal pain. She said she has no dysuria or frequency. She says that she has no nausea or vomiting. This morning, she says she has been able to pass gas. The patient has been followed by Dr. Bhatti and had an endoscopy done in August. REVIEW OF SYSTEMS: All other review of symptoms are within normal limits except as mentioned. ALLERGIES: NO KNOWN DRUG ALLERGIES. MEDICATIONS: Has been reviewed by the MAR. PAST MEDICAL HISTORY: 1. Asthma. 2. Esophagitis. 3. Colon cancer with radiation. 4. Hypertension. 5. Colon polyps. PAST SURGICAL HISTORY: Colon resection and hysterectomy. FAMILY HISTORY: Noncontributory. SOCIAL HISTORY: She does not smoke, drink, or use drugs. PHYSICAL EXAMINATION VITAL SIGNS: Temperature is 98.1, pulse of 83, blood pressure is 162/76, respirations 20, and O2 saturation is 97%. Height is 5 feet 7 inches, weight is 129 pounds, BMI is 20. LABORATORY DATA: White count of 8.1, hemoglobin 13.1, creatinine 0.9. Rest of the labs has been reviewed. CT of the abdomen and pelvis done. I reviewed the CAT scan myself. There is enteritis. There is a small bowel dilatation with early small-bowel obstruction. EKG done shows heart rate of 80, QTc 459, sinus rhythm. ASSESSMENT: 1. Small-bowel obstruction. 2. Constipation. 3. History of colon cancer. 4. Hypertension. PLAN: The patient is currently on ramipril for her blood pressure, this will be continued. She is going to be admitted to the hospital because of the abdominal pain. She is going to be placed on n.p.o. status. This morning when I saw the patient, I advanced her diet to a clear liquid diet. She is on IV fluids. She is getting labetalol for her hypertension, amlodipine and ramipril. The patient has been followed by Dr. Bhatti and Dr. Delcid. I spoke with Dr. Delcid regarding the case. The patient has also been seen by Dr. Aparicio who is her oncologist. We will repeat the patient's blood work tomorrow morning. Mike De Santiago MD
[2017-04-25] MEDS ORDERED: Barium Sulfate Susp 2.1% w/v, 2.0% w/w 450 mL Bottle PO ONE (10:30)
[2017-04-25 12:16] LABS: CA 19-9 8.1 U/mL (0-37)
--- NOTE | 2017-04-25 12:45 | RAD ---
HISTORY: SBO COMPARISON: No prior. FINDINGS: BOWEL: Normal. No obstruction. No free air. BONES: Normal. OTHER FINDINGS: None. IMPRESSION: No active disease.
[2017-04-25] MEDS ORDERED: Iohexol 350 MG/100 ML VIAL ONE (13:15)
--- NOTE | 2017-04-25 15:55 | CP.PCM.PN ---
<Yomaira Ortega - Last Filed: 04/25/17 15:56> Subjective - Date & Time of Evaluation Date of Evaluation: 04/25/17 Time of Evaluation: 10:20 - Subjective Subjective: seen and examined at the bedside this morning she just returned from abdominal x -ray, no obstruction. Patient had bowel movement that was formed 2 denies any melena or bright red blood per rectum. She also tolerating solids. No more nausea, no vomiting and abdominal pain has improved. Objective - Vital Signs/Intake and Output Vital Signs (last 24 hours): Temp Pulse Resp BP Pulse Ox 98 F 74 20 150/70 100 04/25/17 08:21 04/25/17 08:21 04/25/17 08:21 04/25/17 09:00 04/25/17 08:21 Intake and Output: 04/25/17 04/25/17 06:59 18:59 Intake Total 1979 Balance 1979 - Medications Medications: Current Medications Amlodipine Besylate (Norvasc) 10 mg PO DAILY [facility] Last Admin: 04/25/17 09:00 Dose: 10 mg Labetalol HCl (Trandate) 100 mg PO BID [facility] Last Admin: 04/25/17 09:00 Dose: 100 mg Morphine Sulfate (Morphine) 2 mg IVP Q4H PRN PRN Reason: Pain, moderate (4-7) Ondansetron HCl (Zofran Inj) 4 mg IVP Q6H PRN PRN Reason: Nausea/Vomiting Pantoprazole Sodium (Protonix Inj) 40 mg IVP DAILY [facility] Last Admin: 04/25/17 08:59 Dose: 40 mg Ramipril (Altace) 10 mg PO HS [facility] Last Admin: 04/24/17 21:09 Dose: 10 mg - Labs Labs: 04/25/17 07:45 04/25/17 07:45 PT 10.8 Seconds (9.9-11.8) 04/24/17 01:38 INR 1.00 (0.93-1.08) 04/24/17 01:38 APTT 24.7 Seconds (23.7-30.8) 04/24/17 01:38 - Constitutional Appears: No Acute Distress - Eye Exam Eye Exam: Normal appearance. absent: Scleral icterus - ENT Exam ENT Exam: Mucous Membranes Moist - Neck Exam Neck Exam: Normal Inspection - Respiratory Exam Respiratory Exam: Clear to Ausculation Bilateral, Respiratory Distress, NORMAL BREATHING PATTERN - Cardiovascular Exam Cardiovascular Exam: +S1, +S2 - GI/Abdominal Exam GI & Abdominal Exam: Soft, Normal Bowel Sounds. absent: Guarding, Tenderness, Organomegaly, Rebound - Extremities Exam Extremities Exam: Normal Capillary Refill. absent: Calf Tenderness (U6. No), Pedal Edema - Neurological Exam Neurological Exam: Alert, Awake, Oriented x3 - Skin Skin Exam: Dry, Warm Assessment and Plan - Assessment and Plan (Free Text) Assessment: Assessment: Resolved Partial small bowel obstruction History of colon cancer, h/o colon resection CVA, left-sided weakness Hypertension Asthma History of colon polyps Plan: continue diet as tolerated GI prophylaxis DVT prophylaxis Pain management Surgical follow-up CT scan abdomen and pelvis with IV and oral contrast requested, initial CAT scan on admission limited study, done without any contrast. Seen and discussed with Dr. Bhatti. <Dillon Bhatti V - Last Filed: 04/25/17 20:03> Objective - Vital Signs/Intake and Output Vital Signs (last 24 hours): Temp Pulse Resp BP Pulse Ox 98.9 F 64 20 166/75 H 98 04/25/17 16:00 04/25/17 18:41 04/25/17 16:00 04/25/17 18:41 04/25/17 16:00 - Medications Medications: Current Medications Amlodipine Besylate (Norvasc) 10 mg PO DAILY [facility] Last Admin: 04/25/17 09:00 Dose: 10 mg Ceftriaxone Sodium (Rocephin 1 Gram Ivpb) 1 gm in 100 mls @ 100 mls/hr IVPB DAILY [facility] PRN Reason: Protocol Metronidazole (Flagyl) 500 mg in 100 mls @ 100 mls/hr IVPB Q8 [facility] PRN Reason: Protocol Labetalol HCl (Trandate) 100 mg PO BID [facility] Last Admin: 04/25/17 17:42 Dose: 100 mg Morphine Sulfate (Morphine) 2 mg IVP Q4H PRN PRN Reason: Pain, moderate (4-7) Ondansetron HCl (Zofran Inj) 4 mg IVP Q6H PRN PRN Reason: Nausea/Vomiting Pantoprazole Sodium (Protonix Inj) 40 mg IVP DAILY [facility] Last Admin: 04/25/17 08:59 Dose: 40 mg Ramipril (Altace) 10 mg PO HS [facility] Last Admin: 04/24/17 21:09 Dose: 10 mg - Labs Labs: 04/25/17 07:45 04/25/17 07:45 PT 10.8 Seconds (9.9-11.8) 04/24/17 01:38 INR 1.00 (0.93-1.08) 04/24/17 01:38 APTT 24.7 Seconds (23.7-30.8) 04/24/17 01:38 Attending/Attestation - Attestation Notes (Text): 04/25/17 20:03 p
--- NOTE | 2017-04-25 16:01 | CT ---
PROCEDURE: CT Abdomen and Pelvis with contrast HISTORY: h/o colon cancer/sbo COMPARISON: 04/24/2017 CT TECHNIQUE: Contrast dose: 100 cc of Omni 350 Radiation dose: Total exam DLP = 321 mGy-cm. This CT exam was performed using one or more of the following dose reduction techniques: Automated exposure control, adjustment of the mA and/or kV according to patient size, and/or use of iterative reconstruction technique. FINDINGS: LOWER THORAX: Unremarkable. LIVER: Unremarkable. No gross lesion or ductal dilatation. GALLBLADDER AND BILE DUCTS: Unremarkable. PANCREAS: Unremarkable. No gross lesion or ductal dilatation. SPLEEN: Unremarkable. ADRENALS: Unremarkable. No mass. KIDNEYS AND URETERS: Unremarkable. No hydronephrosis. No solid mass. VASCULATURE: Unremarkable. No aortic aneurysm. BOWEL: There is mural thickening and mesenteric inflammation in the descending colon consistent with colitis. This could be due to diverticulitis. The small bowel dilatation seen on the earlier study has resolved. APPENDIX: Normal appendix. PERITONEUM: Unremarkable. No free fluid. No free air. LYMPH NODES: Unremarkable. No enlarged lymph nodes. BLADDER: Unremarkable. REPRODUCTIVE: Unremarkable. BONES: No acute fracture. OTHER FINDINGS: None. IMPRESSION: There is mural thickening and mesenteric inflammation in the descending colon consistent with colitis. This could be due to diverticulitis. The small bowel dilatation seen on the earlier study has resolved.
[2017-04-25] MEDS ORDERED: cefTRIAXone 1 gm 1 GM/100 ML BAG IVPB STA (17:21)
--- NOTE | 2017-04-25 18:37 | PN ---
This is the patient's hospital visit on the medical floor. For Dr. Aparicio. SUBJECTIVE: The patient is a 76-year-old female, former patient of Dr. Aparicio, for treatment of colorectal cancer in 2005, lost to follow-up, now admitted recently for partial bowel obstruction with the patient now reporting she is to have CT scan of her abdomen and pelvis with the patient reporting that her diet was advanced with her abdominal pain recurring afterwards. She is otherwise in no acute distress, reporting that her analgesics help her pain. OBJECTIVE: VITAL SIGNS: Temperature 98, pulse 74, respirations 20, blood pressure 150/70, pulse ox 100%. PHYSICAL EXAM: HEENT: Unremarkable. NECK: Supple. HEART: Regular rate. LUNGS: Clear. ABDOMEN: Soft, minimal tenderness to gentle palpation. EXTREMITIES: No edema. SKIN: Otherwise, warm, dry and clear. NEUROLOGIC: Awake, alert and oriented. LABORATORY DATA: Labs were done. White blood cell count 5.8, hemoglobin 11.7, hematocrit 35.8, platelet count of 272,000. Chem metabolic panel within normal limits except for chloride of 110, BUN of 6; otherwise, normal chem metabolic panel. CEA was 1.8 and CA 19-9 was 8.1. The patient had a flat plate of the abdomen done earlier today. It was read as no active disease. A CT scan of the abdomen and pelvis was also done later on this afternoon and it was read as mural thickening, mesenteric inflammation of descending colon consistent with colitis, could be due to diverticulitis, small bowel dilatation seen in early study has been resolved. ASSESSMENT: The assessment for this patient is that of resolving small bowel obstruction, colitis, history of colorectal cancer status post resection, hypertension, electrolyte imbalance, abdominal pain. PLAN: Plan for this patient after conversation with Dr. Aparicio is to continue present medical regimen with advancing the diet. No surgical intervention at this time with considerations to antibiotics as per Dr. Bhatti or Dr. De Santiago as indicated. Sudarshan Peters MD
[2017-04-25] MEDS: metroNIDAZOLE IV 500 mg/100 ml 500 MG/100 ML BAG IVPB SCH (22:31)
--- NOTE | 2017-04-26 01:22 | PN ---
DATE: 04/25/2017 SUBJECTIVE: The patient has no complaints of any chest pain. No shortness of breath or headaches. No dizziness. She says her abdominal pain is better. She is having bowel movements. PHYSICAL EXAMINATION: VITAL SIGNS: Temperature 98.9, pulse 64, blood pressure 166/75, and respirations 20. GENERAL: The patient is lying in bed, flat, comfortable. HEENT: No oral lesion. Anicteric sclerae. Moist mucosa. NECK: No JVD, adenopathy, or thyromegaly. CARDIOVASCULAR: S1 and S2, regular. No murmurs, rubs, or gallops. LUNGS: Clear to auscultation bilaterally. No wheeze, rales, or rhonchi. ABDOMEN: Bowel sounds are positive, soft, nontender and nondistended. EXTREMITIES: no cyanosis, clubbing or edema. LABORATORY DATA: White count of 5.8 and hemoglobin of 11.7. CT scan of the abdomen and pelvis done shows mural thickening and mesenteric inflammation of descending colon consistent with colitis, this could be due to diverticulitis, small bowel dilatation seen in early study has been resolved. ASSESSMENT: 1. Small bowel obstruction, resolved. 2. Descending colon colitis. 3. Constipation. 4. Hypertension. 5. History of colon cancer. PLAN: The patient is currently on ramipril for her hypertension. She is going to be on morphine for pain. She has neurovascular hypertension as well. She is going to continue with Norvasc. I did speak to Dr. Bhatti regarding the case. The patient is going to be seen by Dr. Delcid as well and Dr. Aparicio for the colon cancer. She is receiving labetalol for her hypertension as well. She is on Zofran as needed. She is on a liquid diet. Mike De Santiago MD
[2017-04-26] MEDS: metroNIDAZOLE IV 500 mg/100 ml 500 MG/100 ML BAG IVPB SCH ×3 (07:50→22:15)
--- NOTE | 2017-04-26 08:56 | CP.PCM.PN ---
Subjective - Date & Time of Evaluation Date of Evaluation: 04/26/17 Time of Evaluation: 08:55 - Subjective Subjective: General Surgery progress note for DR. Delcid PT S&E at bedside. LEATHA. Patient has no complaints at this time. Patient was told CT scan showed wall thickening at the descending colon by GI (possible diverticulitis/colitis). Patient is tolerating diet well. PT denies F/C, N/V. Patient admits to some tenderness to palpation of her abdomen. Patient admits to flatus and BM. Objective - Vital Signs/Intake and Output Vital Signs (last 24 hours): Temp Pulse Resp BP Pulse Ox 98.9 F 64 20 166/75 H 98 04/25/17 16:00 04/25/17 18:41 04/25/17 16:00 04/25/17 18:41 04/25/17 16:00 Intake and Output: 04/26/17 04/26/17 06:59 18:59 Intake Total 1080 Output Total 5 Balance 1075 - Medications Medications: Current Medications Amlodipine Besylate (Norvasc) 10 mg PO DAILY [facility] Last Admin: 04/25/17 09:00 Dose: 10 mg Ceftriaxone Sodium (Rocephin 1 Gram Ivpb) 1 gm in 100 mls @ 100 mls/hr IVPB DAILY [facility] PRN Reason: Protocol Metronidazole (Flagyl) 500 mg in 100 mls @ 100 mls/hr IVPB Q8 [facility] PRN Reason: Protocol Last Admin: 04/26/17 07:50 Dose: 100 mls/hr Labetalol HCl (Trandate) 100 mg PO BID [facility] Last Admin: 04/25/17 17:42 Dose: 100 mg Morphine Sulfate (Morphine) 2 mg IVP Q4H PRN PRN Reason: Pain, moderate (4-7) Ondansetron HCl (Zofran Inj) 4 mg IVP Q6H PRN PRN Reason: Nausea/Vomiting Pantoprazole Sodium (Protonix Inj) 40 mg IVP DAILY [facility] Last Admin: 04/25/17 08:59 Dose: 40 mg Ramipril (Altace) 10 mg PO HS [facility] Last Admin: 04/25/17 22:31 Dose: 10 mg - Labs Labs: 04/25/17 07:45 04/25/17 07:45 PT 10.8 Seconds (9.9-11.8) 04/24/17 01:38 INR 1.00 (0.93-1.08) 04/24/17 01:38 APTT 24.7 Seconds (23.7-30.8) 04/24/17 01:38 - Constitutional Appears: Non-toxic, No Acute Distress - Head Exam Head Exam: NORMAL INSPECTION - Eye Exam Eye Exam: EOMI, Normal appearance - ENT Exam ENT Exam: Mucous Membranes Moist - Neck Exam Neck Exam: Full ROM - Respiratory Exam Respiratory Exam: Clear to Ausculation Bilateral. absent: Accessory Muscle Use , Respiratory Distress - Cardiovascular Exam Cardiovascular Exam: REGULAR RHYTHM. absent: Bradycardia, Tachycardia - GI/Abdominal Exam GI & Abdominal Exam: Soft, Tenderness, Normal Bowel Sounds. absent: Firm, Guarding, Rigid, Rebound Additional comments: very mild tenderness to palpation in upper quadrants. no rebound, rigidity, guarding - Extremities Exam Extremities Exam: Full ROM, Normal Inspection. absent: Joint Swelling, Pedal Edema - Neurological Exam Neurological Exam: Alert, Awake, Oriented x3 - Psychiatric Exam Psychiatric exam: Normal Affect, Normal Mood - Skin Skin Exam: Dry, Intact, Normal Color, Warm Assessment and Plan - Assessment and Plan (Free Text) Assessment: 76F w/ pSBO, resolved Plan: Diet: Heart Healthy Diet Encourage ambulation No acute surgical intervention necessary at this present time Further recommendations per Dr. Hang Chance, PGY1
[2017-04-26] MEDS: cefTRIAXone 1 gm 1 GM/100 ML BAG IVPB SCH (09:23)
--- NOTE | 2017-04-26 21:52 | PN ---
DATE: 04/26/2017 This is [facility] visit on the medical floor. For Dr. Aparicio. SUBJECTIVE: The patient is a 76-year-old female, seen lying awake in bed, now resuming clear liquids as per Dr. Bhatti with antibiotics also, begun for her colitis/diverticulitis treatment with the patient reporting her pain has significantly improved and appears to be in no acute distress with family members at the bedside. Her abdominal pain worsened after her diet was advanced yesterday; however, her pain has now improved with the change of diet. OBJECTIVE/PHYSICAL EXAMINATION VITAL SIGNS: Temperature 98.5, pulse 76, respirations 18, blood pressure 202/75 to be repeated with a pulse ox of 95%. HEENT: Unremarkable. NECK: Supple. HEART: Regular rate. LUNGS: Clear. ABDOMEN: Soft. Minimal tenderness to gentle palpation. EXTREMITIES: No edema. SKIN: Warm and dry. NEUROLOGIC: Awake, alert, and oriented x3. LABORATORY DATA: The patient's labs were done yesterday and we will repeat it tomorrow in the morning. The patient did have a CT scan of the abdomen and pelvis done yesterday with the findings showing mural thickening, mesenteric inflammation of descending colon consistent with colitis, could be due to diverticulitis, small bowel dilatation has been resolved. ASSESSMENT: For this patient is that of colitis/diverticulitis, small bowel obstruction improved, history of cancer of the colon, status post resection, electrolyte imbalance, hypertension. PLAN: For this patient after conversation with Dr. Aparicio is to continue present medical regimen with antibiotics to continue as per Dr. Bhatti, with her labs to be checked in the morning, with her medications to be adjusted as per Dr. De Santiago, with clonidine given and Catapres begun by Dr. Tse covering for Dr. De Santiago. We will monitor clinically with labs. Sudarshan Peters MD
--- NOTE | 2017-04-27 00:36 | PN ---
SUBJECTIVE: The patient is 76 years old, seen and examined, lying in bed, seemed to be comfortable, tolerating clear liquid. No nausea, vomiting, or diarrhea. PHYSICAL EXAMINATION VITAL SIGNS: She is afebrile, pulse 76, respiration 18, and blood pressure 156/76. LUNGS: Bilateral fair airflow. No rhonchi or crackles. HEART: S1 and S2 audible. ABDOMEN: Soft, slight epigastric discomfort. NEUROLOGIC: She is awake and alert, able to communicate. LABORATORY EXAM: Her CT scan of the abdomen and pelvis done that shows mural thickening and mesenteric inflammation in the descending colon consistent with colitis. ASSESSMENT AND PLAN: 1. Descending colitis. 2. Diverticulitis. 3. Hypertension. 4. Anemia. 5. Hypokalemia. PLAN: We will adjust the patient's blood pressure medication, increase her dose of lisinopril and put her on . We will follow up her electrolyte. Encourage physical therapy. We will reevaluate the patient in a.m. Isaac Tse MD
[2017-04-27] MEDS: metroNIDAZOLE IV 500 mg/100 ml 500 MG/100 ML BAG IVPB SCH ×3 (05:55→22:30)
[2017-04-27 07:04] LABS: BASO # 0.02 K/mm3 (0.0-2.0); BASO % 0.4 % (0.0-3.0); EOS # 0.4 (0.0-0.7); EOS % 9.4 % (1.5-5.0); GRAN # 1.84 (1.4-6.5); GRAN % 41.2 % (50.0-68.0); HEMATOCRIT 33.8 % (36.0-48.0); LYMPH # 1.8 (1.2-3.4); LYMPH % 39.6 % (22.0-35.0); MEAN CELL VOLUME 87.3 fl (80.0-105.0); MEAN CORPUSCULAR HEMOGLOBIN 29.7 pg (25.0-35.0); MEAN PLATELET VOLUME 9.3 fl (7.0-11.0); MONO # 0.4 (0.1-0.6); MONO % 9.4 % (1.0-6.0); RED CELL DISTRIBUTION WIDTH 12.5 % (11.5-14.5); WHITE BLOOD COUNT 4.5 10^3/ul (4.5-11.0)
[2017-04-27 07:34] LABS: ALB/GLOB RATIO 1.2 (1.1-1.8); ALKALINE PHOSPHATASE 52 U/L (38-126); ALT/SGPT 24 U/L (7-56); AST/SGOT 30 U/L (14-36); BILIRUBIN,TOTAL 0.4 mg/dL (0.2-1.3); BLOOD UREA NITROGEN 7 mg/dL (7-21); CALCIUM 9.1 mg/dL (8.4-10.5); CARBON DIOXIDE 31 mmol/L (21-33); CHLORIDE 105 mmol/L (98-107); GFR AFRICAN-AMERICAN > 60; GLUCOSE,RANDOM 84 mg/dL (70-110); POTASSIUM 3.5 mmol/L (3.6-5.0); SODIUM 145 mmol/L (132-148); TOTAL PROTEIN 6.5 g/dL (5.8-8.3)
[2017-04-27] MEDS: cefTRIAXone 1 gm 1 GM/100 ML BAG IVPB SCH (10:19)
--- NOTE | 2017-04-27 11:32 | CP.PCM.PN ---
Subjective - Date & Time of Evaluation Date of Evaluation: 04/27/17 Time of Evaluation: 09:00 - Subjective Subjective: Surgery Progress note. Dr. Delcid Pt seen and examined at bedside. No acute events overnight. Pt states that she had BM 1 day prior. Still reports flauts. Denies F/C. No N/V/D. Requesting to advance diet. Objective - Vital Signs/Intake and Output Vital Signs (last 24 hours): Temp Pulse Resp BP Pulse Ox 98.6 F 68 19 164/80 H 99 04/26/17 18:43 04/27/17 10:18 04/26/17 18:43 04/27/17 10:18 04/26/17 18:43 Intake and Output: 04/27/17 04/27/17 06:59 18:59 Intake Total 660 Output Total 0 Balance 660 - Medications Medications: Current Medications Amlodipine Besylate (Norvasc) 10 mg PO DAILY [facility] Last Admin: 04/27/17 10:18 Dose: 10 mg Clonidine HCl (Catapres) 0.1 mg PO BID [facility] Last Admin: 04/27/17 10:18 Dose: 0.1 mg Ceftriaxone Sodium (Rocephin 1 Gram Ivpb) 1 gm in 100 mls @ 100 mls/hr IVPB DAILY [facility] PRN Reason: Protocol Last Admin: 04/27/17 10:19 Dose: 100 mls/hr Metronidazole (Flagyl) 500 mg in 100 mls @ 100 mls/hr IVPB Q8 [facility] PRN Reason: Protocol Last Admin: 04/27/17 05:55 Dose: 100 mls/hr Potassium Chloride (Potassium Chloride 10 Meq/100 Ml) 10 meq in 100 mls @ 100 mls/hr IVPB Q2H [facility] Stop: 04/27/17 11:44 Last Admin: 04/27/17 10:18 Dose: 100 mls/hr Labetalol HCl (Trandate) 100 mg PO BID [facility] Last Admin: 04/27/17 10:17 Dose: 100 mg Morphine Sulfate (Morphine) 2 mg IVP Q4H PRN PRN Reason: Pain, moderate (4-7) Ondansetron HCl (Zofran Inj) 4 mg IVP Q6H PRN PRN Reason: Nausea/Vomiting Pantoprazole Sodium (Protonix Inj) 40 mg IVP DAILY [facility] Last Admin: 04/27/17 10:19 Dose: 40 mg Ramipril (Altace) 10 mg PO HS [facility] Last Admin: 04/26/17 22:18 Dose: Not Given - Labs Labs: 04/27/17 06:00 04/27/17 06:00 PT 10.8 Seconds (9.9-11.8) 04/24/17 01:38 INR 1.00 (0.93-1.08) 04/24/17 01:38 APTT 24.7 Seconds (23.7-30.8) 04/24/17 01:38 - Constitutional Appears: Well, No Acute Distress - Head Exam Head Exam: ATRAUMATIC, NORMAL INSPECTION, NORMOCEPHALIC - Eye Exam Eye Exam: EOMI - ENT Exam ENT Exam: Mucous Membranes Moist - Respiratory Exam Respiratory Exam: NORMAL BREATHING PATTERN. absent: Wheezes - GI/Abdominal Exam GI & Abdominal Exam: Soft. absent: Distended, Firm, Guarding, Rigid, Tenderness - Extremities Exam Extremities Exam: absent: Calf Tenderness, Pedal Edema - Neurological Exam Neurological Exam: Alert, Awake - Psychiatric Exam Psychiatric exam: Normal Affect, Normal Mood - Skin Skin Exam: Dry, Intact, Normal Color, Warm Assessment and Plan - Assessment and Plan (Free Text) Assessment: 76yo F with SBO now resolved. CT evidence of possible colitis/diverticulitis - f/u GI recs - Advance diet to FLD for lunch. Advance as tolerated - Continue ABX as per primary - No plans for any acute surgical intervention further recs as per Dr. Farhana Jaramillo PGY1 surgery pager: [phone]
[2017-04-27 13:29] VITALS: RESP 20
--- NOTE | 2017-04-27 13:46 | CP.PCM.PN ---
Subjective - Date & Time of Evaluation Date of Evaluation: 04/27/17 Time of Evaluation: 13:45 - Subjective Subjective: PGY-2 for House Doc Got paged for IV access after floor RN and unit charge operator attempts. HOUSE NURSE Tari was able to placed 24G IV on L forearm Objective - Vital Signs/Intake and Output Vital Signs (last 24 hours): Temp Pulse Resp BP Pulse Ox 98.2 F 68 20 164/80 H 97 04/27/17 06:00 04/27/17 10:18 04/27/17 06:00 04/27/17 10:18 04/27/17 06:00 Intake and Output: 04/27/17 04/27/17 06:59 18:59 Intake Total 660 600 Output Total 0 Balance 660 600 - Medications Medications: Current Medications Amlodipine Besylate (Norvasc) 10 mg PO DAILY [facility] Last Admin: 04/27/17 10:18 Dose: 10 mg Clonidine HCl (Catapres) 0.1 mg PO BID [facility] Last Admin: 04/27/17 10:18 Dose: 0.1 mg Ceftriaxone Sodium (Rocephin 1 Gram Ivpb) 1 gm in 100 mls @ 100 mls/hr IVPB DAILY [facility] PRN Reason: Protocol Last Admin: 04/27/17 10:19 Dose: 100 mls/hr Metronidazole (Flagyl) 500 mg in 100 mls @ 100 mls/hr IVPB Q8 [facility] PRN Reason: Protocol Last Admin: 04/27/17 05:55 Dose: 100 mls/hr Labetalol HCl (Trandate) 100 mg PO BID [facility] Last Admin: 04/27/17 10:17 Dose: 100 mg Morphine Sulfate (Morphine) 2 mg IVP Q4H PRN PRN Reason: Pain, moderate (4-7) Ondansetron HCl (Zofran Inj) 4 mg IVP Q6H PRN PRN Reason: Nausea/Vomiting Pantoprazole Sodium (Protonix Inj) 40 mg IVP DAILY [facility] Last Admin: 04/27/17 10:19 Dose: 40 mg Ramipril (Altace) 10 mg PO HS [facility] Last Admin: 04/26/17 22:18 Dose: Not Given - Labs Labs: 04/27/17 06:00 04/27/17 06:00 PT 10.8 Seconds (9.9-11.8) 04/24/17 01:38 INR 1.00 (0.93-1.08) 04/24/17 01:38 APTT 24.7 Seconds (23.7-30.8) 04/24/17 01:38
[2017-04-27 17:10] VITALS: O2SAT 98
--- NOTE | 2017-04-27 19:01 | PN ---
SUBJECTIVE: The patient is 76 years old, seen and examined, doing well, eating and tolerating. She states her abdominal pain has significantly improved. No diarrhea. No fever. No chills. PHYSICAL EXAMINATION VITAL SIGNS: She is afebrile, pulse 60, respirations 20 and blood pressure 153/73. LUNGS: Bilateral fair airflow. No rhonchi or crackle. HEART: S1 and S2 audible. ABDOMEN: Soft and nontender. No rebound. No guarding. NEUROLOGIC: The patient is awake and alert, able to communicate, ambulatory. LABORATORY EXAM: WBC is 4.5, hemoglobin 11.5, hematocrit 33.8, platelet 283. Chemistries: Sodium 145, potassium 3.5, chloride 105, CO2 of 31, BUN 7, creatinine 0.8, blood sugar of 84. Blood culture and urine cultures are negative. ASSESSMENT: 1. Descending colitis. 2. Uncontrolled hypertension. 3. Electrolyte imbalance, improved. 4. Chronic anemia. PLAN: Currently, the patient is on ramipril, I will increase the dose to 20 at bedtime. The patient seems to be hemodynamically stable and is tolerating clear liquid diet, we will advance it to soft diet and continue on Flagyl and Rocephin, analgesic as needed. We will advance her diet; if she continues to stay stable, she might be discharged in a.m. Isaac sTe MD
--- NOTE | 2017-04-28 01:07 | PN ---
DATE: 04/27/2017 This is patient's hospital visit on the medical floor. For Dr. Aparicio. SUBJECTIVE: The patient is a 76-year-old female seen lying, awake in bed with family members at the bedside with clear liquids being tolerated; however, her IV access has been difficult with her IV antibiotics and IV fluids to continue as per Dr. Bhatti's recommendation. She is otherwise is no acute distress with her pain significantly improved. OBJECTIVE/PHYSICAL EXAMINATION: VITAL SIGNS: Temperature 98.2, pulse 68, respirations 20, blood pressure 164/80, pulse ox 97%. HEENT: Unremarkable. NECK: Supple. HEART: Regular rate. LUNGS: Clear. ABDOMEN: Soft, nontender this visit. EXTREMITIES: No edema. SKIN: Warm and dry. NEUROLOGIC: Awake, alert, and oriented x3. LABORATORY DATA: The patient's labs were done. White blood cell count of 4.5, hemoglobin 11.5, hematocrit 33.8, platelet count of 283,000 with a chem metabolic panel showing a potassium of 3.5, otherwise normal chem metabolic panel. ASSESSMENT: Diverticulitis/colitis; small bowel obstruction, improved; history of cancer of the colon, status post resection; electrolyte imbalance; hypertension. After conversation with Dr. Aparicio, we will continue present medical regimen with her IV Protonix changed to p.o. with other medications to be changed to p.o. as possible with continuation of her present medical regimen as per Dr. Bhatti. We will monitor clinically with labs. Sudarshan Peters MD
--- NOTE | 2017-04-28 02:05 | PN ---
SUBJECTIVE: This patient was seen and evaluated earlier. The patient feels much better. Diet has been advanced. PHYSICAL EXAMINATION: VITAL SIGNS: Temperature is 97.9, blood pressure 164/77, pulse 64, respirations 20, and O2 saturation is 98%. HEENT: Atraumatic, anicteric. NECK: Supple. HEART: S1 and S2 heard. LUNGS: Bilateral air entry present. ABDOMEN: Soft. He states that he has significant improvement of the tenderness in the left side of the abdomen. EXTREMITIES: No edema. No cyanosis. LABORATORY DATA: Hemoglobin 11.5, hematocrit 33.8, WBC is 4.5, platelets 285. Chemistries essentially unremarkable except for potassium is 3.5. IMPRESSION: This 76-year-old patient admitted with a small bowel obstruction improved, appear to have persistent pain in the left side of the abdomen, had a CT with repeat p.o. and IV contrast revealed left-sided colitis showed mural thickening and the mesenteric inflammation along the descending colon. The patient is on antibiotics, clinically improving. RECOMMENDATIONS: 1. Continue with low-residue diet with stool softeners. 2. He would benefit from elective colonoscopic evaluation. We will continue closely. Thank you very much for allowing me to the participate in the care of the patient. Dillon Bhatti MD
[2017-04-28] MEDS: metroNIDAZOLE IV 500 mg/100 ml 500 MG/100 ML BAG IVPB SCH ×2 (05:53→13:02)
[2017-04-28] MEDS ORDERED: Pantoprazole 40 mg EC Tab PO SCH (06:00)
[2017-04-28 07:35] LABS: ALB/GLOB RATIO 1.2 (1.1-1.8); ALKALINE PHOSPHATASE 50 U/L (38-126); ALT/SGPT 24 U/L (7-56); AST/SGOT 26 U/L (14-36); BILIRUBIN,TOTAL 0.3 mg/dL (0.2-1.3); BLOOD UREA NITROGEN 8 mg/dL (7-21); CALCIUM 9.4 mg/dL (8.4-10.5); CARBON DIOXIDE 31 mmol/L (21-33); CHLORIDE 106 mmol/L (98-107); GFR AFRICAN-AMERICAN > 60; GLUCOSE,RANDOM 95 mg/dL (70-110); POTASSIUM 4.1 mmol/L (3.6-5.0); SODIUM 147 mmol/L (132-148); TOTAL PROTEIN 6.5 g/dL (5.8-8.3)
--- NOTE | 2017-04-28 08:43 | CP.PCM.PN ---
Subjective - Date & Time of Evaluation Date of Evaluation: 04/28/17 Time of Evaluation: 08:40 - Subjective Subjective: General Surgery Progress note for Dr. Delcid Pt seen and examined at bedside. No acute events overnight. Pt states that she had BM and flatus. Patient is tolerating GI diet. PAtient denies N/V, abdominal pain. Objective - Vital Signs/Intake and Output Vital Signs (last 24 hours): Temp Pulse Resp BP Pulse Ox 97.9 F 64 20 164/77 H 98 04/27/17 17:09 04/27/17 18:07 04/27/17 17:09 04/27/17 18:07 04/27/17 17:09 Intake and Output: 04/28/17 04/28/17 06:59 18:59 Intake Total 780 Balance 780 - Medications Medications: Current Medications Amlodipine Besylate (Norvasc) 10 mg PO DAILY [facility] Last Admin: 04/27/17 10:18 Dose: 10 mg Clonidine HCl (Catapres) 0.1 mg PO BID [facility] Last Admin: 04/27/17 18:07 Dose: 0.1 mg Ceftriaxone Sodium (Rocephin 1 Gram Ivpb) 1 gm in 100 mls @ 100 mls/hr IVPB DAILY [facility] PRN Reason: Protocol Last Admin: 04/27/17 10:19 Dose: 100 mls/hr Metronidazole (Flagyl) 500 mg in 100 mls @ 100 mls/hr IVPB Q8 [facility] PRN Reason: Protocol Last Admin: 04/28/17 05:53 Dose: 100 mls/hr Labetalol HCl (Trandate) 200 mg PO BID [facility] Morphine Sulfate (Morphine) 2 mg IVP Q4H PRN PRN Reason: Pain, moderate (4-7) Ondansetron HCl (Zofran Inj) 4 mg IVP Q6H PRN PRN Reason: Nausea/Vomiting Pantoprazole Sodium (Protonix Ec Tab) 40 mg PO 0600 [facility] Last Admin: 04/28/17 05:54 Dose: 40 mg Ramipril (Altace) 20 mg PO HS [facility] Last Admin: 04/27/17 22:30 Dose: 20 mg - Labs Labs: 04/27/17 06:00 04/28/17 06:55 PT 10.8 Seconds (9.9-11.8) 04/24/17 01:38 INR 1.00 (0.93-1.08) 04/24/17 01:38 APTT 24.7 Seconds (23.7-30.8) 04/24/17 01:38 - Constitutional Appears: Non-toxic - Head Exam Head Exam: NORMAL INSPECTION, NORMOCEPHALIC - Eye Exam Eye Exam: EOMI, Normal appearance - ENT Exam ENT Exam: Mucous Membranes Moist - Neck Exam Neck Exam: Full ROM, Normal Inspection - Respiratory Exam Respiratory Exam: Clear to Ausculation Bilateral, NORMAL BREATHING PATTERN. absent: Accessory Muscle Use, Respiratory Distress - Cardiovascular Exam Cardiovascular Exam: REGULAR RHYTHM, +S1, +S2. absent: Bradycardia, Tachycardia - GI/Abdominal Exam GI & Abdominal Exam: Soft. absent: Tenderness, Mass, Rebound - Extremities Exam Extremities Exam: Normal Inspection. absent: Pedal Edema - Neurological Exam Neurological Exam: Alert, Awake, Oriented x3 - Psychiatric Exam Psychiatric exam: Normal Affect, Normal Mood - Skin Skin Exam: Dry, Intact, Normal Color, Warm Assessment and Plan - Assessment and Plan (Free Text) Assessment: 76yo F with SBO now resolved. CT evidence of possible colitis/diverticulitis Plan: Patient tolerating GI diet No surgical intervention needed at this time Continue ABX as per primary No plans for any acute surgical intervention d/w recommendations with Dr. Farhana Chance, DO PGY1 surgery pager: [phone]
[2017-04-28 08:56] VITALS: BP 150/72; TEMP 98.1
[2017-04-28] MEDS: cefTRIAXone 1 gm 1 GM/100 ML BAG IVPB SCH (10:12)
[2017-04-28 10:14] VITALS: PULSE 62
--- NOTE | 2017-04-28 10:30 | PN ---
DATE: 04/28/2017 HISTORY OF PRESENT ILLNESS: This is a [id number], who is coming to the hospital with abdominal pain. She was found to have colitis and was started on IV antibiotics. She also had a small bowel obstruction that had improved. The patient is currently feeling better. She has no complaints of any headaches, dizziness, nausea, or diarrhea. PHYSICAL EXAMINATION: VITAL SIGNS: Temperature is 97.9, pulse 64, blood pressure 164/77, respirations 20. GENERAL: The patient is lying in bed, flat, comfortable. HEENT: No oral lesion. Anicteric sclerae. Moist mucosa. NECK: No JVD, adenopathy, or thyromegaly. CARDIOVASCULAR: S1 and S2, regular. No murmurs, rubs, or gallops. LUNGS: Clear to auscultation bilaterally. No wheeze, rales, or rhonchi. ABDOMEN: Bowel sounds are positive, soft, nontender and nondistended. EXTREMITIES: No cyanosis, clubbing or edema. ASSESSMENT: 1. Colitis, improving. 2. Small bowel obstruction, resolved. 3. Constipation. 4. Hypertension. 5. History of colon cancer. PLAN: She is on a low residual diet with stool softeners. She is on clonidine for hypertension. She is on morphine for pain. She is receiving labetalol. Her Altace has been increased. I will also increase the patient's labetalol to 200 mg because of the hypertension. We will wait for the patient's labs; if labs are acceptable, we will discharge the patient home. Mike De Santiago MD
--- NOTE | 2017-04-28 12:38 | CP.PCM.PN ---
<Yomaira Ortega - Last Filed: 04/28/17 16:29> Subjective - Date & Time of Evaluation Date of Evaluation: 04/28/17 Time of Evaluation: 10:00 - Subjective Subjective: S&E at bedside, chart reviewed, tolerating oral intake, having BM, abdominal pain better. No BM yet today, no acute overnight events. Objective - Vital Signs/Intake and Output Vital Signs (last 24 hours): Temp Pulse Resp BP Pulse Ox 98.1 F 62 20 150/72 98 04/28/17 08:55 04/28/17 10:12 04/28/17 08:55 04/28/17 10:13 04/28/17 08:55 Intake and Output: 04/28/17 04/28/17 06:59 18:59 Intake Total 780 Balance 780 - Medications Medications: Current Medications Amlodipine Besylate (Norvasc) 10 mg PO DAILY [facility] Last Admin: 04/28/17 10:13 Dose: 10 mg Clonidine HCl (Catapres) 0.1 mg PO BID [facility] Last Admin: 04/28/17 10:12 Dose: 0.1 mg Ceftriaxone Sodium (Rocephin 1 Gram Ivpb) 1 gm in 100 mls @ 100 mls/hr IVPB DAILY [facility] PRN Reason: Protocol Last Admin: 04/28/17 10:12 Dose: 100 mls/hr Metronidazole (Flagyl) 500 mg in 100 mls @ 100 mls/hr IVPB Q8 [facility] PRN Reason: Protocol Last Admin: 04/28/17 05:53 Dose: 100 mls/hr Labetalol HCl (Trandate) 200 mg PO BID [facility] Last Admin: 04/28/17 10:13 Dose: 200 mg Morphine Sulfate (Morphine) 2 mg IVP Q4H PRN PRN Reason: Pain, moderate (4-7) Ondansetron HCl (Zofran Inj) 4 mg IVP Q6H PRN PRN Reason: Nausea/Vomiting Pantoprazole Sodium (Protonix Ec Tab) 40 mg PO 0600 [facility] Last Admin: 04/28/17 05:54 Dose: 40 mg Ramipril (Altace) 20 mg PO HS [facility] Last Admin: 04/27/17 22:30 Dose: 20 mg - Labs Labs: 04/27/17 06:00 04/28/17 06:55 PT 10.8 Seconds (9.9-11.8) 04/24/17 01:38 INR 1.00 (0.93-1.08) 04/24/17 01:38 APTT 24.7 Seconds (23.7-30.8) 04/24/17 01:38 - Constitutional Appears: No Acute Distress - Head Exam Head Exam: NORMOCEPHALIC - Eye Exam Eye Exam: Normal appearance. absent: Scleral icterus - ENT Exam ENT Exam: Mucous Membranes Moist - Neck Exam Neck Exam: Normal Inspection - Respiratory Exam Respiratory Exam: NORMAL BREATHING PATTERN. absent: Respiratory Distress - Cardiovascular Exam Cardiovascular Exam: +S1, +S2 - GI/Abdominal Exam GI & Abdominal Exam: Soft, Normal Bowel Sounds. absent: Guarding, Tenderness, Rebound - Extremities Exam Extremities Exam: Normal Capillary Refill. absent: Calf Tenderness, Pedal Edema - Neurological Exam Neurological Exam: Alert, Awake, Oriented x3 - Skin Skin Exam: Dry, Warm Assessment and Plan - Assessment and Plan (Free Text) Assessment: Assessment: Left sided Colitis Resolved Partial small bowel obstruction History of colon cancer, h/o colon resection CVA, left-sided weakness Hypertension Asthma History of colon polyps Plan: continue diet as tolerated GI prophylaxis DVT prophylaxis Pain management DC home with oral antibiotics Flagyl to complete a total 10 day course discuss w/ FU in outpatent office 2 weeks and will benefit from elective outpatient colonoscopy. Seen and discussed with Dr. Bhatti. <Dillon Bhatti V - Last Filed: 04/28/17 21:04> Objective - Vital Signs/Intake and Output Vital Signs (last 24 hours): Temp Pulse Resp BP Pulse Ox 98.1 F 62 20 150/72 98 04/28/17 08:55 04/28/17 10:12 04/28/17 08:55 04/28/17 10:13 04/28/17 08:55 Intake and Output: 04/28/17 04/29/17 18:59 06:59 Intake Total 600 Balance 600 - Labs Labs: 04/27/17 06:00 04/28/17 06:55 PT 10.8 Seconds (9.9-11.8) 04/24/17 01:38 INR 1.00 (0.93-1.08) 04/24/17 01:38 APTT 24.7 Seconds (23.7-30.8) 04/24/17 01:38 Attending/Attestation - Attestation I have personally seen and examined this patient.: Yes I have fully participated in the care of the patient.: Yes I have reviewed all pertinent clinical information, including history, physical exam and plan: Yes Notes (Text): This is an addendum to GI progress report dictated by Yomaira Ortega APN.The patient was seen and examined earlier. Medical records, lab studies, imagings were reviewed. Last 24 hours events reviewed. Agreed with the above treatment plan as outlined in Yomaira Ortega NP's notes the with the addition of the following on examination abdomen soft there is no tenderness now Tolerating the diet Complete antibiotics course Low residue diet with a stool softener Otherwise follow up in our office Elective colonoscopy after 3-4 weeks Discussed with the Dr. Damon 04/28/17 21:03
--- NOTE | 2017-05-18 09:47 | DS ---
This is a 76-year-old female who had come into the hospital and was found to have colitis. The patient also had small-bowel obstruction, it has improved. She was seen by Dr. Delcid from surgery and also Dr. Bhatti. Please see the note that was dictated on 04/30/2017 for further details. Mike De Santiago MD
== END 2017-04-28 15:17 | disposition home or self-care (01) | DRG 389 ==
LOC: ED 00:23 → ERH 03:50 → 3RSO 06:54
PROVIDERS: ADMIT Internal Medicine Nephrology; ATTEND Internal Medicine Nephrology
DX: K56.60 Unspecified intestinal obstruction (principal); K57.92 Diverticulitis of intestine, part unspecified, without perforation or abscess without bleeding; I69.354 Hemiplegia and hemiparesis following cerebral infarction affecting left non-dominant side; K51.50 Left sided colitis without complications; I10 Essential (primary) hypertension; E87.6 Hypokalemia; J45.909 Unspecified asthma, uncomplicated; K64.9 Unspecified hemorrhoids; Z79.82 Long term (current) use of aspirin; Z79.899 Other long term (current) drug therapy; Z85.048 Personal history of other malignant neoplasm of rectum, rectosigmoid junction, and anus; Z90.49 Acquired absence of other specified parts of digestive tract; Z86.010 Personal history of colon polyps; Z90.710 Acquired absence of both cervix and uterus; Z92.21 Personal history of antineoplastic chemotherapy; Z92.3 Personal history of irradiation; E78.00 Pure hypercholesterolemia, unspecified; D50.9 Iron deficiency anemia, unspecified; K20.9 Esophagitis, unspecified; R40.2412 Glasgow coma scale score 13-15, at arrival to emergency department; K59.00 Constipation, unspecified; H26.9 Unspecified cataract

== ENCOUNTER → 2018-10-23 | Outpatient (CLI) | payer MEDICARE, MEDICAID | LOC: RAD 07:41 ==

== ENCOUNTER 2018-11-28 11:23 | Outpatient (CLI) | payer MEDICARE, MEDICAID | END 2018-11-28 11:24 | disposition home or self-care (01) | LOC: RAD 11:23 ==